=== PATIENT | female | born 1945 | race Caucasian/White ===

== ENCOUNTER → 2017-02-08 | Outpatient (CLI) | payer OTHER, MEDICAID ==
[~2017-02-08] MED LIST: ALEN70TA5 PO; CIPR-184 PO; CITALOPRAM PO; CLON1TAB PO; EXEM25TA2 PO; FLUT10SP NAS; FLUT1DIS5 INH; GABA300T3 PO; LISI1TAB5 PO; MECL-76 PO; MECL25TA4 PO; MILN100T PO; MORP15TA PO; NORCO PO; SUMA100T3 PO; TOPI25TA8 PO; TRAZ100T15 PO; VERA180C2 PO
== END | disposition home or self-care (01) ==
LOC: CFH 10:00
PROVIDERS: ATTEND Internal Medicine Hematology & Oncology
DX: Z13.820 Encounter for screening for osteoporosis (principal); M81.0 Age-related osteoporosis without current pathological fracture; C50.212 Malignant neoplasm of upper-inner quadrant of left female breast
CPT/HCPCS: 77080

== ENCOUNTER → 2017-07-20 | Outpatient (CLI) | payer OTHER, MEDICAID | LOC: CFH 08:40 | PROVIDERS: ATTEND Internal Medicine Cardiovascular Disease | DX: I48.0 Paroxysmal atrial fibrillation (principal); I08.1 Rheumatic disorders of both mitral and tricuspid valves; I10 Essential (primary) hypertension | CPT/HCPCS: 93306 ==

== ENCOUNTER → 2017-08-08 | Outpatient (CLI) | payer OTHER, MEDICAID | END | disposition home or self-care (01) | LOC: CFH 10:47 | PROVIDERS: ATTEND Internal Medicine Cardiovascular Disease | DX: R06.02 Shortness of breath (principal) | CPT/HCPCS: 71046 ==

== ENCOUNTER 2017-08-26 15:03 | Observation (INO) | payer OTHER, MEDICAID ==
[~2017-08-26] VITALS: Ht 170.2 cm; Wt 82.6 kg
[2017-08-26] MEDS ORDERED: APIX5TAB PO (15:59)
[2017-08-26] MEDS ORDERED: BUSP10TA PO (16:00)
[2017-08-26] MEDS ORDERED: LISI40TA PO (16:01)
[2017-08-26 16:02] LABS: BASOPHILS # (AUTO) 0.04 x10^3/uL (0-0.1); BASOPHILS % (AUTO) 1 % (0-1); EOSINOPHILS # (AUTO) 0.04 x10^3/uL (0-0.4); EOSINOPHILS % (AUTO) 1 % (1-7); LYMPHOCYTES # (AUTO) 1.29 x10^3/uL (1-3.4); LYMPHOCYTES % (AUTO) 27 % (22-44); MD NO; MEAN CORPUSCULAR HEMOGLOBIN 29.1 pg (27.0-34.8); MEAN CORPUSCULAR HGB CONC 32.9 g/dL (32.4-35.8); MEAN CORPUSCULAR VOLUME 88.5 fL (80-100); MEAN PLATELET VOLUME 8.6 fL (7.4-10.4); MONOCYTES # (AUTO) 0.41 x10^3/uL (0.2-0.8); MONOCYTES % (AUTO) 9 % (2-9); NEUTROPHILS # (AUTO) 2.94 x10^3/uL (1.8-6.8); NEUTROPHILS % (AUTO) 62 % (42-75); PLATELET COUNT 213 x10^3/uL (130-400); RED CELL DISTRIBUTION WIDTH 14.3 % (9.6-15.2)
[2017-08-26] MEDS ORDERED: HYDR-3307 PO (16:03)
[2017-08-26] MEDS ORDERED: BUTA-177 PO (16:05)
[2017-08-26] MEDS ORDERED: FLUT15.812 NAS (16:08)
[2017-08-26] MEDS ORDERED: TIZA4TAB PO (16:09)
[2017-08-26] MEDS ORDERED: ALBU18HF INH (16:10)
[2017-08-26 16:13] LABS: ALBUMIN 3.2 g/dL (3.4-5.0); ANION GAP 8 mmol/L (5-15); CALCIUM 8.1 mg/dL (8.5-10.1); CHLORIDE 116 mmol/L (98-107); CREATININE 1.56 mg/dL (0.55-1.02)
[2017-08-26 16:17] LABS: TROPONIN I < 0.015 ng/mL (0.000-0.045)
[2017-08-26] MEDS ORDERED: ASPIRIN 81 MG TABLET EC ONE (16:41)
[2017-08-26] MEDS ORDERED: ASPIRIN 325 MG TABLET ONE (16:43)
[2017-08-26] MEDS ORDERED: ASPIRIN 325 MG TABLET PO ONE (17:00)
[2017-08-26] MEDS ORDERED: BUTALB/APAP/CAFFEINE 50MG/325MG/40MG PO PRN (17:00)
[2017-08-26] MEDS ORDERED: TIZANIDINE 4MG TABLET PO PRN (17:00)
[2017-08-26] MEDS ORDERED: LABETALOL 5MG/ML, 20ML IVPush PRN (17:30)
[2017-08-26] MEDS ORDERED: DOCUSATE 100 MG CAPSULE PO PRN (17:30)
[2017-08-26] MEDS ORDERED: NITROGLYCERIN 0.4 MG BOTTLE (25 TABS) SL PRN (17:30)
[2017-08-26] MEDS ORDERED: ONDANSETRON 2MG/ML, 2ML IVPush PRN (17:30)
[2017-08-26] MEDS ORDERED: BISACODYL 10 MG SUPP PR PRN (17:30)
[2017-08-26] MEDS ORDERED: ACETAMINOPHEN 325 MG TABLET PO PRN (17:30)
[2017-08-26] MEDS ORDERED: POLYETHYLENE GLYCOL 17 GM PACKET PO PRN (17:30)
[2017-08-26] MEDS ORDERED: morphine SULFATE 10 MG/ML, 1ML IVPush PRN (17:30)
[2017-08-26 17:32] VITALS: BP 153/89
[2017-08-26] MEDS ORDERED: ALBUTEROL SULFATE 2.5 MG/3 ML NPPB PRN (18:00)
[2017-08-26] MEDS: D5%-0.45NACL+KCL 20MEQ 1,000 ML IV SCH (18:17)
[2017-08-26 20:00] VITALS: BP 112/67
[2017-08-26] MEDS: BUSPIRONE 5 MG TABLET PO SCH (20:00)
[2017-08-26] MEDS: APIXABAN 5 MG TABLET PO SCH (20:00)
[2017-08-26 20:36] LABS: TROPONIN I < 0.015 ng/mL (0.000-0.045)
[2017-08-26] MEDS ORDERED: TRAZODONE 100MG TABLET PO PRN (21:00)
[2017-08-27 00:40] VITALS: BP 137/88
[2017-08-27 02:24] LABS: ANION GAP 7 mmol/L (5-15); CALCIUM 8.2 mg/dL (8.5-10.1); CHLORIDE 117 mmol/L (98-107); CHOLESTEROL, TOTAL 138 mg/dL (140-239); CREATININE 1.35 mg/dL (0.55-1.02)
[2017-08-27 02:27] LABS: CHOL/HDL RATIO 2.2; HDL CHOL % 45 % (28-40); HDL CHOLESTEROL (DIRECT) 62 mg/dL (40-60); LDL CHOLESTEROL,CALCULATED 65 mg/dL (54-169); TRIGLYCERIDES 55 mg/dL (50-200); TROPONIN I < 0.015 ng/mL (0.000-0.045); VLDL CHOLESTEROL 11 mg/dL (0-25)
[2017-08-27] MEDS: D5%-0.45NACL+KCL 20MEQ 1,000 ML IV SCH (03:42)
[2017-08-27 07:50] VITALS: BP 135/83
[2017-08-27] MEDS ORDERED: REGADENOSON 0.4 MG/5 ML SYRINGE ONE (08:19)
[2017-08-27] MEDS ORDERED: TOPIRAMATE 25 MG TABLET PO SCH (09:00)
[2017-08-27] MEDS ORDERED: FLUTICASONE NASAL SPRAY 16GM NAS SCH (09:00)
[2017-08-27] MEDS ORDERED: LISINOPRIL 20 MG TABLET PO SCH (09:00)
[2017-08-27] MEDS: APIXABAN 5 MG TABLET PO SCH (12:04)
[2017-08-27] MEDS: BUSPIRONE 5 MG TABLET PO SCH (12:04)
[2017-08-27 14:00] VITALS: BP 170/93
== END 2017-08-27 17:11 | disposition home or self-care (01) ==
LOC: ED 16:00 → 5SO 17:02
PROVIDERS: ADMIT Hospitalist; ATTEND Hospitalist
DX: R07.89 Other chest pain (principal); N17.0 Acute kidney failure with tubular necrosis; I11.9 Hypertensive heart disease without heart failure; E11.40 Type 2 diabetes mellitus with diabetic neuropathy, unspecified; I48.91 Unspecified atrial fibrillation; M79.7 Fibromyalgia; E44.1 Mild protein-calorie malnutrition; G89.29 Other chronic pain; M54.9 Dorsalgia, unspecified; G43.909 Migraine, unspecified, not intractable, without status migrainosus; M81.0 Age-related osteoporosis without current pathological fracture; D68.69 Other thrombophilia; G47.00 Insomnia, unspecified; F32.9 Major depressive disorder, single episode, unspecified; J45.909 Unspecified asthma, uncomplicated; Z82.5 Family history of asthma and other chronic lower respiratory diseases; Z98.84 Bariatric surgery status; Z90.11 Acquired absence of right breast and nipple
CPT/HCPCS: 36415; 71045; 78452; 80048; 80061; 82040; 84484; 85025; 85379; 93005; 93017; 96360; 96361; 99285; A9502; C9898; G0378; J2785; J3480

== ENCOUNTER 2017-09-15 05:53 | Day surgery (SDC) | payer OTHER, MEDICAID ==
[2017-09-14 12:06] LABS: BASOPHILS # (AUTO) 0.03 x10^3/uL (0-0.1); BASOPHILS % (AUTO) 1 % (0-1); EOSINOPHILS # (AUTO) 0.03 x10^3/uL (0-0.4); EOSINOPHILS % (AUTO) 1 % (1-7); LYMPHOCYTES # (AUTO) 1.59 x10^3/uL (1-3.4); LYMPHOCYTES % (AUTO) 26 % (22-44); MD NO; MEAN CORPUSCULAR HEMOGLOBIN 29.2 pg (27.0-34.8); MEAN CORPUSCULAR HGB CONC 33.1 g/dL (32.4-35.8); MEAN CORPUSCULAR VOLUME 88.2 fL (80-100); MEAN PLATELET VOLUME 8.4 fL (7.4-10.4); MONOCYTES # (AUTO) 0.54 x10^3/uL (0.2-0.8); MONOCYTES % (AUTO) 9 % (2-9); NEUTROPHILS % (AUTO) 65 % (42-75); PLATELET COUNT 249 x10^3/uL (130-400); RED BLOOD COUNT 4.63 x10^6/uL (3.82-5.3); RED CELL DISTRIBUTION WIDTH 14.5 % (9.6-15.2)
[2017-09-14 12:14] LABS: INTERNATIONAL NORMALIZED RATIO 0.94 (0.93-1.1); PROTHROMBIN TIME 9.7 Seconds (9.6-11.5)
[2017-09-14 12:17] LABS: ALANINE AMINOTRANSFERASE 18 U/L (12-78); ALBUMIN 3.7 g/dL (3.4-5.0); ANION GAP 10 mmol/L (5-15); CALCIUM 8.7 mg/dL (8.5-10.1); CHLORIDE 108 mmol/L (98-107); CREATININE 1.28 mg/dL (0.55-1.02)
[2017-09-14 12:19] LABS: ALKALINE PHOSPHATASE 148 U/L (45-117); BILIRUBIN,TOTAL 0.6 mg/dL (0.2-1.0); TOTAL PROTEIN 7.5 g/dL (6.4-8.2)
[2017-09-14 12:36] VITALS: BP 127/81
[~2017-09-15] VITALS: Ht 170.2 cm; Wt 81.8 kg
[~2017-09-15 05:53] MED LIST changes: +ALBU18HF INH; +APIX5TAB PO; +BUSP10TA PO; +BUTA-177 PO; +CALC-55 PO; +CYAN10005 PO; +FLUT15.812 NAS; +HYDR-3307 PO; +LISI40TA PO; +PREG75CA PO; +TIZA4TAB PO; +TOPI15CA4 PO
[2017-09-15] MEDS ORDERED: FENTANYL PF 250 MCG/5ML ONE (07:54)
== END 2017-09-15 09:15 | disposition home or self-care (01) ==
LOC: CACL 05:53
PROVIDERS: ATTEND Internal Medicine Cardiovascular Disease
DX: I48.91 Unspecified atrial fibrillation (principal); I10 Essential (primary) hypertension; J45.909 Unspecified asthma, uncomplicated; Z88.1 Allergy status to other antibiotic agents; Z88.5 Allergy status to narcotic agent; Z88.8 Allergy status to other drugs, medicaments and biological substances
CPT/HCPCS: 36415; 71046; 80053; 85025; 85610; 85730; 92960; J3010

== ENCOUNTER 2018-10-01 11:34 | Day surgery (SDC) | payer MEDICARE, MEDICAID ==
[~2018-10-01] VITALS: Ht 170.2 cm; Wt 95.5 kg
[~2018-10-01 11:34] MED LIST changes: -ALEN70TA5 PO; +ALEN70TA6 PO; +TRAZ-137 PO; -TRAZ100T15 PO
[2018-10-01 13:14] VITALS: BP 147/81
[2018-10-01] MEDS ORDERED: SODIUM CHLORIDE 0.9% 1,000 ML IV SCH (13:30)
[2018-10-01] MEDS ORDERED: PLEASE ENTER HEIGHT AND WEIGHT MC SCH (13:30)
[2018-10-01 13:52] LABS: ALANINE AMINOTRANSFERASE 13 U/L (12-78); ALBUMIN 3.6 g/dL (3.4-5.0); ANION GAP 10 mmol/L (5-15); CALCIUM 8.8 mg/dL (8.5-10.1); CHLORIDE 114 mmol/L (98-107); CREATININE 1.19 mg/dL (0.55-1.02)
[2018-10-01 13:54] LABS: ALKALINE PHOSPHATASE 192 U/L (45-117); BILIRUBIN,TOTAL 0.6 mg/dL (0.2-1.0)
[2018-10-01] MEDS ORDERED: PROPOFOL 10 MG/ML, 20ML ONE (14:30)
== END 2018-10-01 16:26 | disposition home or self-care (01) ==
LOC: CACL 11:34
PROVIDERS: ATTEND Internal Medicine Cardiovascular Disease
DX: I48.0 Paroxysmal atrial fibrillation (principal); I34.0 Nonrheumatic mitral (valve) insufficiency; I10 Essential (primary) hypertension; Z88.1 Allergy status to other antibiotic agents; Z88.5 Allergy status to narcotic agent; Z88.8 Allergy status to other drugs, medicaments and biological substances
CPT/HCPCS: 36415; 80053; 92960; 93005; 93306; 93312; 93321; 93325; J2704

== ENCOUNTER 2018-10-04 12:31 | Inpatient (IN) | payer MEDICARE, MEDICAID ==
[~2018-10-04] VITALS: Ht 170.2 cm; Wt 91.0 kg
--- NOTE | 2018-10-04 13:06 | NUR ---
PT TO ED WITH DIZZINESS, SOB FOR 3 DAYS, "I'M BACK IN A FIB", TOLD BY DR.RICHARD RO'S OFFICE TO WAIT AND SEE IF FEELS BETTER, TO ED AFTER 3 DAYS NO RELIEF. [facility] 3D AGO AT . PT PLACED ON MONITOR, EKG DONE. SON AT BEDSIDE.
[2018-10-04 13:43] LABS: BASOPHILS # (AUTO) 0.03 x10^3/uL (0-0.1); BASOPHILS % (AUTO) 1 % (0-1); EOSINOPHILS # (AUTO) 0.03 x10^3/uL (0-0.4); EOSINOPHILS % (AUTO) 1 % (1-7); LYMPHOCYTES # (AUTO) 1.22 x10^3/uL (1-3.4); LYMPHOCYTES % (AUTO) 21 % (22-44); MD NO; MEAN CORPUSCULAR HEMOGLOBIN 25.6 pg (27.0-34.8); MEAN CORPUSCULAR HGB CONC 32.2 g/dL (32.4-35.8); MEAN CORPUSCULAR VOLUME 79.6 fL (80-100); MEAN PLATELET VOLUME 8.7 fL (7.4-10.4); MONOCYTES # (AUTO) 0.45 x10^3/uL (0.2-0.8); MONOCYTES % (AUTO) 8 % (2-9); NEUTROPHILS # (AUTO) 4.13 x10^3/uL (1.8-6.8); NEUTROPHILS % (AUTO) 71 % (42-75); PLATELET COUNT 249 x10^3/uL (130-400); RED BLOOD COUNT 4.48 x10^6/uL (3.82-5.3); RED CELL DISTRIBUTION WIDTH 17.4 % (9.6-15.2)
[2018-10-04 13:51] LABS: INTERNATIONAL NORMALIZED RATIO 1.02 (0.93-1.1); PROTHROMBIN TIME 10.7 Seconds (9.6-11.5)
[2018-10-04 13:53] LABS: ALBUMIN 3.4 g/dL (3.4-5.0); ANION GAP 5 mmol/L (5-15); CALCIUM 8.7 mg/dL (8.5-10.1); CHLORIDE 116 mmol/L (98-107); CREATININE 1.19 mg/dL (0.55-1.02)
[2018-10-04 13:58] LABS: FREE T4 (FREE THYROXINE) 1.01 ng/dL (0.76-1.46); TROPONIN I < 0.015 ng/mL (0.000-0.045)
--- NOTE | 2018-10-04 14:04 | NUR ---
PT RESTING IN [place] WITH SON AT BEDSIDE, PT ON MONITOR, VSS. AWAITING LAB RESULTS
--- NOTE | 2018-10-04 14:42 | NUR ---
PT AMBULATED ON MONITOR, AFTER APPROX 30 SEC PT'S HR INTO 140-150'S, PT C/O OF SOB AND NEED TO SIT DOWN BUT O2 SAT% REMAINED IN 97-99% ON ROOM AIR. BP 168/87. NOTIFIED
--- NOTE | 2018-10-04 14:56 | NUR ---
MD AT BEDSIDE, PT TB ADMITTED
[2018-10-04] MEDS ORDERED: SODIUM CHLORIDE FLUSH 10ML SYR IVF PRN (15:30)
--- NOTE | 2018-10-04 16:05 | NUR ---
OK FOR FOOD PER , PT RESTING IN [facility], FAMILY PROVIDED SOME FOOD. AWAITING BED ASSIGNMENT
--- NOTE | 2018-10-04 16:30 | NUR ---
CARDIOLOGY AT BEDSIDE
--- NOTE | 2018-10-04 16:56 | NUR ---
REPORT TO KAROLINA MARTINEZ
[2018-10-04] MEDS ORDERED: LIDODERM 5% PATCH TD PRN (17:30)
[2018-10-04] MEDS ORDERED: ONDANSETRON 2MG/ML, 2ML IVPush PRN (17:30)
[2018-10-04] MEDS ORDERED: ONDANSETRON ODT 4 MG PO PRN (17:30)
[2018-10-04] MEDS ORDERED: ACETAMINOPHEN 325 MG TABLET PO PRN (17:30)
[2018-10-04] MEDS ORDERED: hydrALAzine 20 MG/ML, 1ML IVPush PRN (17:30)
[2018-10-04] MEDS ORDERED: DOCUSATE 100 MG CAPSULE PO PRN (17:30)
[2018-10-04] MEDS ORDERED: ALBUTEROL SULFATE 2.5 MG/3 ML NPPB PRN (18:00)
[2018-10-04] MEDS ORDERED: MECLIZINE HCL 25 MG TABLET PO PRN (18:00)
[2018-10-04] MEDS ORDERED: TIZANIDINE 4MG TABLET PO PRN (18:00)
[2018-10-04 18:18] VITALS: BP 149/94
[2018-10-04] MEDS: HYDROcodone/APAP 10/325 MG TABLET PO PRN (18:20)
[2018-10-04] MEDS: SOTALOL 80MG TABLET PO SCH (18:20)
[2018-10-04 18:49] VITALS: BP 146/94
[2018-10-04] MEDS: PREGABALIN 75 MG CAPSULE PO SCH (20:01)
[2018-10-04] MEDS: BUSPIRONE 10 MG TABLET PO SCH (20:01)
[2018-10-04] MEDS: APIXABAN 5 MG TABLET PO SCH (20:01)
[2018-10-05 00:27] VITALS: BP 141/84
[2018-10-05 05:17] LABS: ANION GAP 6 mmol/L (5-15); CALCIUM 8.8 mg/dL (8.5-10.1); CHLORIDE 116 mmol/L (98-107)
[2018-10-05 05:18] LABS: BASOPHILS # (AUTO) 0.03 x10^3/uL (0-0.1); BASOPHILS % (AUTO) 1 % (0-1); EOSINOPHILS # (AUTO) 0.08 x10^3/uL (0-0.4); EOSINOPHILS % (AUTO) 2 % (1-7); LYMPHOCYTES # (AUTO) 1.51 x10^3/uL (1-3.4); LYMPHOCYTES % (AUTO) 36 % (22-44); MD NO; MEAN CORPUSCULAR HEMOGLOBIN 25.8 pg (27.0-34.8); MEAN CORPUSCULAR HGB CONC 32.2 g/dL (32.4-35.8); MEAN CORPUSCULAR VOLUME 80.3 fL (80-100); MEAN PLATELET VOLUME 8.8 fL (7.4-10.4); MONOCYTES # (AUTO) 0.45 x10^3/uL (0.2-0.8); MONOCYTES % (AUTO) 11 % (2-9); NEUTROPHILS # (AUTO) 2.13 x10^3/uL (1.8-6.8); NEUTROPHILS % (AUTO) 51 % (42-75); PLATELET COUNT 228 x10^3/uL (130-400); RED BLOOD COUNT 4.23 x10^6/uL (3.82-5.3); RED CELL DISTRIBUTION WIDTH 17.7 % (9.6-15.2)
[2018-10-05 05:20] LABS: CREATININE 1.17 mg/dL (0.55-1.02)
[2018-10-05] MEDS: HYDROcodone/APAP 10/325 MG TABLET PO PRN ×2 (05:50→21:26)
[2018-10-05] MEDS: SOTALOL 80MG TABLET PO SCH ×2 (05:50→18:29)
[2018-10-05 08:10] VITALS: BP 131/85
[2018-10-05] MEDS: EXEMESTANE 25 MG PO SCH ×2 (08:26→09:00)
[2018-10-05] MEDS: APIXABAN 5 MG TABLET PO SCH ×2 (08:27→21:26)
[2018-10-05] MEDS: BUSPIRONE 10 MG TABLET PO SCH ×2 (08:28→21:26)
[2018-10-05] MEDS: LISINOPRIL 40 MG TABLET PO SCH (08:28)
[2018-10-05] MEDS: FLUTICASONE NASAL SPRAY 16GM NAS SCH (08:28)
[2018-10-05] MEDS: CALCIUM/VITAMIN D3 250-125 TABLET PO SCH (08:28)
[2018-10-05] MEDS ORDERED: FLUTICASONE NASAL SPRAY 16GM NAS SCH (09:00)
[2018-10-05] MEDS ORDERED: PREGABALIN 75 MG CAPSULE PO SCH (09:00)
[2018-10-05 11:17] LABS: MICROSCOPIC AUTO
[2018-10-05 11:21] LABS: CULTURE INDICATED? NO
[2018-10-05 14:38] VITALS: BP 127/80
[2018-10-05 20:46] VITALS: BP 143/85
[2018-10-05] MEDS: PREGABALIN 75 MG CAPSULE PO SCH (21:26)
[2018-10-06 01:37] VITALS: BP 116/78
[2018-10-06] MEDS: SOTALOL 80MG TABLET PO SCH ×2 (05:39→18:26)
[2018-10-06 07:44] VITALS: BP 128/86
[2018-10-06] MEDS: FLUTICASONE NASAL SPRAY 16GM NAS SCH (09:00)
[2018-10-06] MEDS: BUSPIRONE 10 MG TABLET PO SCH ×2 (09:00→20:48)
[2018-10-06] MEDS: EXEMESTANE 25 MG PO SCH (09:00)
[2018-10-06] MEDS ORDERED: DEXTROSE 5% 500 ML IV PRN (09:28)
[2018-10-06] MEDS ORDERED: FENTANYL PF 100 MCG/2ML IV ONE (09:30)
[2018-10-06] MEDS ORDERED: MIDAZOLAM 1 MG/ML, 2ML IV ONE (09:30)
[2018-10-06] MEDS ORDERED: BUSPIRONE 5 MG TABLET ONE (10:53)
[2018-10-06] MEDS: APIXABAN 5 MG TABLET PO SCH ×2 (11:07→20:46)
[2018-10-06] MEDS: LISINOPRIL 40 MG TABLET PO SCH (11:07)
[2018-10-06] MEDS: CALCIUM/VITAMIN D3 250-125 TABLET PO SCH (11:08)
[2018-10-06] MEDS: HYDROcodone/APAP 10/325 MG TABLET PO PRN (11:11)
[2018-10-06] MEDS ORDERED: PROPOFOL 10 MG/ML, 20ML ONE (12:23)
[2018-10-06 13:19] VITALS: BP 105/62
[2018-10-06 19:08] VITALS: BP_SYST 126; BP_SYST 138; BP_DIAS 72; BP_DIAS 74
[2018-10-06] MEDS: PREGABALIN 75 MG CAPSULE PO SCH (20:46)
[2018-10-06] MEDS ORDERED: DIPHENHYDRAMINE 25 MG CAPSULE PO PRN (21:00)
[2018-10-07 01:09] VITALS: BP 117/77
[2018-10-07 04:13] VITALS: BP 148/85
[2018-10-07 04:16] VITALS: BP 139/63
[2018-10-07 04:18] VITALS: BP 134/81
[2018-10-07 07:55] VITALS: BP 129/83
[2018-10-07] MEDS: CALCIUM/VITAMIN D3 250-125 TABLET PO SCH (08:54)
[2018-10-07] MEDS: LISINOPRIL 40 MG TABLET PO SCH (08:54)
[2018-10-07] MEDS: BUSPIRONE 10 MG TABLET PO SCH (08:54)
[2018-10-07] MEDS: SOTALOL 80MG TABLET PO SCH (08:54)
[2018-10-07] MEDS: APIXABAN 5 MG TABLET PO SCH (08:54)
[2018-10-07] MEDS: EXEMESTANE 25 MG PO SCH (08:57)
[2018-10-07] MEDS: FLUTICASONE NASAL SPRAY 16GM NAS SCH (08:57)
[2018-10-07] MEDS ORDERED: SOTA80TA18 PO (09:36)
== END 2018-10-07 12:59 | disposition home health service (06) | DRG 308 ==
LOC: ED 14:22 → EDIP 15:21 → 5SO 17:08
PROVIDERS: ADMIT Internal Medicine; ATTEND Internal Medicine
PROC: 5A2204Z Restoration of Cardiac Rhythm, Single (ICD-10-PCS; principal; 2018-10-06 12:20)
DX: I48.0 Paroxysmal atrial fibrillation (principal); I50.41 Acute combined systolic (congestive) and diastolic (congestive) heart failure; D68.59 Other primary thrombophilia; I13.0 Hypertensive heart and chronic kidney disease with heart failure and stage 1 through stage 4 chronic kidney disease, or unspecified chronic kidney disease; D35.2 Benign neoplasm of pituitary gland; E11.22 Type 2 diabetes mellitus with diabetic chronic kidney disease; F32.9 Major depressive disorder, single episode, unspecified; G43.909 Migraine, unspecified, not intractable, without status migrainosus; G47.00 Insomnia, unspecified; G89.29 Other chronic pain; I34.0 Nonrheumatic mitral (valve) insufficiency; I48.1 Persistent atrial fibrillation; M19.90 Unspecified osteoarthritis, unspecified site; J45.909 Unspecified asthma, uncomplicated; M79.7 Fibromyalgia; M81.0 Age-related osteoporosis without current pathological fracture; N18.3 Chronic kidney disease, stage 3 (moderate); Z79.01 Long term (current) use of anticoagulants; Z82.49 Family history of ischemic heart disease and other diseases of the circulatory system; Z85.3 Personal history of malignant neoplasm of breast; Z87.891 Personal history of nicotine dependence; Z90.11 Acquired absence of right breast and nipple; Z98.84 Bariatric surgery status; Z87.01 Personal history of pneumonia (recurrent); Z90.49 Acquired absence of other specified parts of digestive tract; Z98.1 Arthrodesis status
CPT/HCPCS: 36415; 71045; 80048; 81001; 82040; 83880; 84439; 84443; 84484; 85025; 85610; 85730; 93005; 99285; G0378; J2704; Q0163

== ENCOUNTER → 2018-10-18 | Outpatient (CLI) | payer MEDICARE, MEDICAID ==
[~2018-10-18] MED LIST changes: +FENTANYL PF 100 MCG/2ML ONE; +FLUMAZENIL 0.1 MG/1 ML, 5ML ONE; +GADOBUTROL 10 MMOL/10 ML PFS ONE; +MIDAZOLAM 1 MG/ML, 5ML ONE; +NALOXONE 1 MG/ML, 2ML ONE; +SOTA80TA18 PO
== END | disposition home or self-care (01) ==
LOC: RAD 09:06
PROVIDERS: ATTEND Family Medicine
DX: G31.89 Other specified degenerative diseases of nervous system (principal); I67.82 Cerebral ischemia
CPT/HCPCS: 70553; 99156; 99157; A9585; J2250; J3010; J2310

== ENCOUNTER 2018-11-26 16:05 | Inpatient (IN) | payer MEDICARE, MEDICAID ==
[~2018-11-26] VITALS: Ht 170.2 cm; Wt 92.0 kg
[~2018-11-26 16:05] MED LIST changes: -FENTANYL PF 100 MCG/2ML ONE; -FLUMAZENIL 0.1 MG/1 ML, 5ML ONE; -GADOBUTROL 10 MMOL/10 ML PFS ONE; -MIDAZOLAM 1 MG/ML, 5ML ONE; -NALOXONE 1 MG/ML, 2ML ONE
--- NOTE | 2018-11-26 16:18 | NUR ---
Pt BIB EMS from home where pt lives with son for weakness, nausea, worse SOB on exertion x 1 week. Pt denies vomiting. Denies CP but does states some pressure. Afib on monitor. Lungs diminished in bases. mild pitting edema BLES.
[2018-11-26 16:50] LABS: PROTHROMBIN TIME 10.5 Seconds (9.6-11.5)
[2018-11-26 16:52] LABS: ALBUMIN 3.3 g/dL (3.4-5.0); ANION GAP 9 mmol/L (5-15); CALCIUM 8.2 mg/dL (8.5-10.1); CHLORIDE 111 mmol/L (98-107); CREATININE 1.46 mg/dL (0.55-1.02)
[2018-11-26 16:55] LABS: TROPONIN I < 0.015 ng/mL (0.000-0.045)
[2018-11-26 17:01] LABS: BASOPHILS # (AUTO) 0.03 x10^3/uL (0-0.1); BASOPHILS % (AUTO) 1 % (0-1); EOSINOPHILS # (AUTO) 0.06 x10^3/uL (0-0.4); EOSINOPHILS % (AUTO) 1 % (1-7); LYMPHOCYTES # (AUTO) 1.58 x10^3/uL (1-3.4); LYMPHOCYTES % (AUTO) 30 % (22-44); MD NO; MEAN CORPUSCULAR HEMOGLOBIN 26.7 pg (27.0-34.8); MEAN CORPUSCULAR VOLUME 83.3 fL (80-100); MEAN PLATELET VOLUME 9.1 fL (7.4-10.4); MONOCYTES % (AUTO) 11 % (2-9); NEUTROPHILS # (AUTO) 3.09 x10^3/uL (1.8-6.8); NEUTROPHILS % (AUTO) 58 % (42-75); PLATELET COUNT 262 x10^3/uL (130-400); RED BLOOD COUNT 4.59 x10^6/uL (3.82-5.3)
[2018-11-26] MEDS ORDERED: TOPI50TA8 PO (17:39)
[2018-11-26] MEDS ORDERED: HYDROCHLOROTH12.5 MG PO (17:39)
[2018-11-26] MEDS ORDERED: ACETAMINOPHEN 325 MG TABLET ONE (18:14)
[2018-11-26] MEDS ORDERED: ACETAMINOPHEN 325 MG TABLET PO ONE (18:30)
--- NOTE | 2018-11-26 19:29 | NUR ---
BREAK RN- PATIENT RESTING WITH NO COMPLAINTS. VS UPDATED AND WNL. AWAITING HOSPITAL ROOM. SIDE RAILS UP X2 FOR SAFETY. CALL BUTTON IN LAP.
[2018-11-26 20:20] VITALS: BP 122/86
[2018-11-26] MEDS ORDERED: ACETAMINOPHEN 325 MG TABLET PO PRN (20:30)
[2018-11-26] MEDS ORDERED: NITROGLYCERIN 0.4 MG BOTTLE (25 TABS) SL PRN (20:30)
[2018-11-26] MEDS ORDERED: ONDANSETRON ODT 4 MG PO PRN (20:30)
[2018-11-26] MEDS ORDERED: DOCUSATE 100 MG CAPSULE PO PRN (20:30)
[2018-11-26] MEDS ORDERED: LIDODERM 5% PATCH TD PRN (20:30)
[2018-11-26] MEDS ORDERED: TEMAZEPAM 15 MG CAPSULE PO PRN (20:30)
[2018-11-26] MEDS ORDERED: HEPARIN 5,000 UNITS/ML, 1ML SQ SCH (20:30)
[2018-11-26] MEDS ORDERED: ENALAPRILAT 1.25 MG/ML, 2ML IVPush PRN (20:30)
[2018-11-26] MEDS ORDERED: MECLIZINE 25 MG TABLET PO PRN (22:00)
[2018-11-26] MEDS ORDERED: PHARMACY MAY ADJ FOR RENAL FX MC PRN (22:30)
[2018-11-26] MEDS ORDERED: SOTALOL 80MG TABLET PO ONE (22:30)
[2018-11-26] MEDS ORDERED: TOPIRAMATE 100 MG TABLET ONE (22:35)
[2018-11-26] MEDS: BUSPIRONE 5 MG TABLET PO SCH (22:44)
[2018-11-26] MEDS: APIXABAN 5 MG TABLET PO SCH (22:44)
[2018-11-26] MEDS: TOPIRAMATE 25 MG TABLET PO SCH (22:45)
[2018-11-26] MEDS: TIZANIDINE 4MG TABLET PO PRN (22:48)
[2018-11-26 23:21] LABS: TROPONIN I < 0.015 ng/mL (0.000-0.045)
[2018-11-27] MEDS: HYDROcodone/APAP 10/325 MG TABLET PO PRN ×3 (01:40→17:35)
[2018-11-27 02:22] VITALS: BP 144/78
[2018-11-27 05:37] LABS: BASOPHILS # (AUTO) 0.03 x10^3/uL (0-0.1); BASOPHILS % (AUTO) 1 % (0-1); EOSINOPHILS # (AUTO) 0.04 x10^3/uL (0-0.4); EOSINOPHILS % (AUTO) 1 % (1-7); LYMPHOCYTES % (AUTO) 33 % (22-44); MD NO; MEAN CORPUSCULAR HEMOGLOBIN 26.7 pg (27.0-34.8); MEAN CORPUSCULAR HGB CONC 31.9 g/dL (32.4-35.8); MEAN CORPUSCULAR VOLUME 83.6 fL (80-100); MEAN PLATELET VOLUME 9.4 fL (7.4-10.4); MONOCYTES # (AUTO) 0.45 x10^3/uL (0.2-0.8); MONOCYTES % (AUTO) 9 % (2-9); NEUTROPHILS # (AUTO) 2.87 x10^3/uL (1.8-6.8); NEUTROPHILS % (AUTO) 56 % (42-75); PLATELET COUNT 219 x10^3/uL (130-400); RED BLOOD COUNT 4.46 x10^6/uL (3.82-5.3); RED CELL DISTRIBUTION WIDTH 19.3 % (9.6-15.2)
[2018-11-27 05:46] LABS: ANION GAP 6 mmol/L (5-15); CALCIUM 8.9 mg/dL (8.5-10.1); CHLORIDE 112 mmol/L (98-107)
[2018-11-27 05:53] LABS: CREATININE 1.31 mg/dL (0.55-1.02); TROPONIN I < 0.015 ng/mL (0.000-0.045)
[2018-11-27] MEDS ORDERED: SOTALOL 80MG TABLET PO SCH (06:00)
[2018-11-27] MEDS ORDERED: TOPIRAMATE 100 MG TABLET ONE (07:36)
[2018-11-27 07:38] VITALS: BP 102/57
[2018-11-27] MEDS: BUSPIRONE 5 MG TABLET PO SCH ×2 (07:42→20:18)
[2018-11-27] MEDS: APIXABAN 5 MG TABLET PO SCH ×2 (07:43→20:18)
[2018-11-27] MEDS: DULOXETINE 30 MG CAPSULE.DR PO SCH (07:43)
[2018-11-27] MEDS: TOPIRAMATE 25 MG TABLET PO SCH ×2 (07:43→20:18)
[2018-11-27] MEDS: EXEMESTANE 25 MG HOMEMEDPO SCH (07:48)
[2018-11-27] MEDS ORDERED: POTASSIUM CHLORIDE 20 MEQ TAB.ER.PRT PO ONE (08:00)
[2018-11-27] MEDS ORDERED: LISINOPRIL 40 MG TABLET PO SCH (09:00)
[2018-11-27] MEDS ORDERED: HYDROCHLOROTHIAZIDE 12.5 MG CAPSULE PO SCH (09:00)
[2018-11-27 10:28] VITALS: BP_SYST 100; BP_SYST 110; BP_SYST 112; BP_DIAS 68; BP_DIAS 70; BP_DIAS 73
[2018-11-27] MEDS: SODIUM CHLORIDE 0.9% 1,000 ML IV SCH ×2 (11:20→22:55)
[2018-11-27] MEDS: FLUTICASONE NASAL SPRAY 16GM NAS SCH (11:20)
[2018-11-27 13:15] VITALS: BP 109/73
[2018-11-27] MEDS: SOTALOL 80MG TABLET PO SCH (17:35)
[2018-11-27 18:55] VITALS: BP 108/69
[2018-11-27] MEDS: TIZANIDINE 4MG TABLET PO PRN (20:18)
[2018-11-27 20:26] VITALS: BP_SYST 107; BP_SYST 109; BP_SYST 110; BP_DIAS 71; BP_DIAS 76; BP_DIAS 78
[2018-11-28 03:20] VITALS: BP 125/75
[2018-11-28 06:01] LABS: BASOPHILS # (AUTO) 0.03 x10^3/uL (0-0.1); BASOPHILS % (AUTO) 1 % (0-1); EOSINOPHILS # (AUTO) 0.05 x10^3/uL (0-0.4); EOSINOPHILS % (AUTO) 1 % (1-7); LYMPHOCYTES # (AUTO) 1.64 x10^3/uL (1-3.4); LYMPHOCYTES % (AUTO) 33 % (22-44); MD NO; MEAN CORPUSCULAR HEMOGLOBIN 26.7 pg (27.0-34.8); MEAN CORPUSCULAR HGB CONC 31.8 g/dL (32.4-35.8); MEAN CORPUSCULAR VOLUME 83.9 fL (80-100); MEAN PLATELET VOLUME 9.2 fL (7.4-10.4); MONOCYTES # (AUTO) 0.44 x10^3/uL (0.2-0.8); MONOCYTES % (AUTO) 9 % (2-9); NEUTROPHILS % (AUTO) 57 % (42-75); PLATELET COUNT 229 x10^3/uL (130-400); RED BLOOD COUNT 4.63 x10^6/uL (3.82-5.3); RED CELL DISTRIBUTION WIDTH 19.2 % (9.6-15.2)
[2018-11-28 06:22] LABS: ANION GAP 5 mmol/L (5-15); CALCIUM 8.9 mg/dL (8.5-10.1); CHLORIDE 114 mmol/L (98-107)
[2018-11-28 06:51] LABS: CREATININE 1.19 mg/dL (0.55-1.02); THYROID STIMULATING HORMONE 0.623 mIU/L (0.358-3.740)
[2018-11-28] MEDS ORDERED: TOPIRAMATE 100 MG TABLET ONE (08:14)
[2018-11-28] MEDS: APIXABAN 5 MG TABLET PO SCH (08:18)
[2018-11-28] MEDS: TOPIRAMATE 25 MG TABLET PO SCH ×2 (08:19→21:42)
[2018-11-28] MEDS: DULOXETINE 30 MG CAPSULE.DR PO SCH (08:20)
[2018-11-28] MEDS: HYDROcodone/APAP 10/325 MG TABLET PO PRN ×2 (08:20→21:41)
[2018-11-28] MEDS: BUSPIRONE 5 MG TABLET PO SCH ×2 (08:20→21:42)
[2018-11-28] MEDS: EXEMESTANE 25 MG HOMEMEDPO SCH (08:22)
[2018-11-28] MEDS: SOTALOL 80MG TABLET PO SCH (08:23)
[2018-11-28] MEDS: FLUTICASONE NASAL SPRAY 16GM NAS SCH (09:00)
[2018-11-28 09:40] VITALS: BP 121/81
[2018-11-28 15:59] VITALS: BP 120/77
[2018-11-28 16:00] LABS: LDL/HDL RATIO 1.4 (0.5-3.0)
[2018-11-28 20:51] VITALS: BP 136/84
[2018-11-28] MEDS: ALBUTEROL SULFATE 2.5 MG/3 ML NPPB SCH (21:00)
[2018-11-29 03:42] VITALS: BP 127/83
[2018-11-29 05:39] LABS: BASOPHILS # (AUTO) 0.02 x10^3/uL (0-0.1); BASOPHILS % (AUTO) 0 % (0-1); EOSINOPHILS # (AUTO) 0.05 x10^3/uL (0-0.4); EOSINOPHILS % (AUTO) 1 % (1-7); LYMPHOCYTES # (AUTO) 1.57 x10^3/uL (1-3.4); LYMPHOCYTES % (AUTO) 30 % (22-44); MD NO; MEAN CORPUSCULAR HGB CONC 31.7 g/dL (32.4-35.8); MEAN CORPUSCULAR VOLUME 81.9 fL (80-100); MONOCYTES # (AUTO) 0.51 x10^3/uL (0.2-0.8); MONOCYTES % (AUTO) 10 % (2-9); NEUTROPHILS # (AUTO) 3.07 x10^3/uL (1.8-6.8); NEUTROPHILS % (AUTO) 59 % (42-75); PLATELET COUNT 209 x10^3/uL (130-400); RED BLOOD COUNT 4.75 x10^6/uL (3.82-5.3)
[2018-11-29 05:48] LABS: ANION GAP 8 mmol/L (5-15); CALCIUM 9.1 mg/dL (8.5-10.1); CHLORIDE 112 mmol/L (98-107); CREATININE 1.12 mg/dL (0.55-1.02)
[2018-11-29 08:20] VITALS: BP 134/88
[2018-11-29] MEDS ORDERED: TOPIRAMATE 100 MG TABLET ONE (08:25)
[2018-11-29] MEDS: FLUTICASONE NASAL SPRAY 16GM NAS SCH (08:27)
[2018-11-29] MEDS: BUSPIRONE 5 MG TABLET PO SCH ×2 (08:27→19:53)
[2018-11-29] MEDS: DULOXETINE 30 MG CAPSULE.DR PO SCH (08:27)
[2018-11-29] MEDS: EXEMESTANE 25 MG HOMEMEDPO SCH (08:27)
[2018-11-29] MEDS: HYDROcodone/APAP 10/325 MG TABLET PO PRN ×2 (08:27→21:26)
[2018-11-29] MEDS: TOPIRAMATE 25 MG TABLET PO SCH ×2 (08:28→19:53)
[2018-11-29] MEDS: ALBUTEROL SULFATE 2.5 MG/3 ML NPPB SCH ×2 (09:00→19:30)
[2018-11-29] MEDS ORDERED: SODIUM CHLORIDE 0.9% 1,000 ML IV SCH (11:00)
[2018-11-29] MEDS ORDERED: FILTER 0.22 MICRON IV PRN (11:30)
[2018-11-29] MEDS ORDERED: AMIODARONE 900 MG in DEXTROSE 5% 482 ML IV PRN (11:30)
[2018-11-29] MEDS ORDERED: AMIODARONE IN D5W 100 ML IV ONE (11:30)
[2018-11-29 12:35] VITALS: BP 151/90
[2018-11-29] MEDS ORDERED: FENTANYL PF 100 MCG/2ML ONE (13:58)
[2018-11-29] MEDS ORDERED: MIDAZOLAM 1 MG/ML, 5ML ONE (13:58)
[2018-11-29] MEDS ORDERED: HEPARIN 1,000 UNITS/ML, 10ML ONE (13:59)
[2018-11-29] MEDS ORDERED: BIVALIRUDIN 250 MG ONE (13:59)
[2018-11-29] MEDS ORDERED: LIDOCAINE 2%, 20ML ONE (13:59)
[2018-11-29] MEDS ORDERED: VERAPAMIL 2.5 MG/ML, 2ML ONE (13:59)
[2018-11-29] MEDS: SODIUM CHLORIDE 0.9% 1,000 ML IV SCH ×2 (15:36→22:57)
[2018-11-29] MEDS ORDERED: MORPHINE SULFATE 4 MG/ML, 1ML ONE (16:04)
[2018-11-29] MEDS ORDERED: MORPHINE SULFATE 4 MG/ML, 1ML IVPush PRN (16:30)
[2018-11-29] MEDS ORDERED: BUTALB/APAP/CAFFEINE 50MG/325MG/40MG PO PRN (17:00)
[2018-11-29 19:15] VITALS: BP 143/95
[2018-11-29] MEDS: APIXABAN 5 MG TABLET PO SCH (19:53)
[2018-11-30 00:39] VITALS: BP 138/83
[2018-11-30] MEDS: HYDROcodone/APAP 10/325 MG TABLET PO PRN ×2 (02:10→19:33)
[2018-11-30 05:08] LABS: ANION GAP 6 mmol/L (5-15); CALCIUM 8.6 mg/dL (8.5-10.1); CHLORIDE 112 mmol/L (98-107)
[2018-11-30 05:09] LABS: CREATININE 1.19 mg/dL (0.55-1.02)
[2018-11-30 07:14] VITALS: BP 137/90
[2018-11-30] MEDS: ALBUTEROL SULFATE 2.5 MG/3 ML NPPB SCH (08:10)
[2018-11-30] MEDS ORDERED: ALBUTEROL SULFATE 2.5 MG/3 ML NPPB PRN (08:30)
[2018-11-30] MEDS ORDERED: TOPIRAMATE 100 MG TABLET ONE (09:09)
[2018-11-30] MEDS: APIXABAN 5 MG TABLET PO SCH ×2 (09:12→20:29)
[2018-11-30] MEDS: DULOXETINE 30 MG CAPSULE.DR PO SCH (09:12)
[2018-11-30] MEDS: BUSPIRONE 5 MG TABLET PO SCH ×2 (09:12→20:30)
[2018-11-30] MEDS: EXEMESTANE 25 MG HOMEMEDPO SCH (09:12)
[2018-11-30] MEDS: FLUTICASONE NASAL SPRAY 16GM NAS SCH (09:12)
[2018-11-30] MEDS: TOPIRAMATE 25 MG TABLET PO SCH ×2 (09:13→20:30)
[2018-11-30] MEDS: AMIODARONE 200 MG TABLET PO SCH ×2 (10:18→20:32)
[2018-11-30 12:12] VITALS: BP 150/99
[2018-11-30] MEDS ORDERED: PROPOFOL 10 MG/ML, 20ML ONE (14:46)
[2018-11-30 19:30] VITALS: BP 135/84
[2018-11-30 20:27] VITALS: BP 143/86
[2018-12-01 00:58] VITALS: BP 136/68
[2018-12-01] MEDS: HYDROcodone/APAP 10/325 MG TABLET PO PRN ×2 (03:58→21:32)
[2018-12-01 07:28] VITALS: BP 142/84
[2018-12-01] MEDS: DULOXETINE 30 MG CAPSULE.DR PO SCH (09:22)
[2018-12-01] MEDS: BUSPIRONE 5 MG TABLET PO SCH ×2 (09:22→21:32)
[2018-12-01] MEDS: AMIODARONE 200 MG TABLET PO SCH ×2 (09:22→21:32)
[2018-12-01] MEDS: TOPIRAMATE 25 MG TABLET PO SCH ×2 (09:23→21:32)
[2018-12-01] MEDS: APIXABAN 5 MG TABLET PO SCH ×2 (09:23→21:32)
[2018-12-01] MEDS: FLUTICASONE NASAL SPRAY 16GM NAS SCH (09:23)
[2018-12-01] MEDS: EXEMESTANE 25 MG HOMEMEDPO SCH (09:28)
[2018-12-01] MEDS: METOPROLOL TARTRATE 25 MG TABLET PO SCH ×3 (11:54→23:23)
[2018-12-01 13:15] VITALS: BP 141/86
[2018-12-01 21:30] VITALS: BP 151/91
[2018-12-02 01:44] VITALS: BP 149/90
[2018-12-02 05:10] VITALS: BP 144/95
[2018-12-02] MEDS ORDERED: METOPROLOL TARTRATE 25 MG TABLET PO ONE ×2 (06:00)
[2018-12-02] MEDS: BUSPIRONE 5 MG TABLET PO SCH ×2 (09:13→20:10)
[2018-12-02] MEDS: APIXABAN 5 MG TABLET PO SCH ×2 (09:13→20:10)
[2018-12-02] MEDS: DULOXETINE 30 MG CAPSULE.DR PO SCH (09:13)
[2018-12-02] MEDS: AMIODARONE 200 MG TABLET PO SCH ×2 (09:14→20:10)
[2018-12-02] MEDS: FLUTICASONE NASAL SPRAY 16GM NAS SCH (09:15)
[2018-12-02] MEDS: EXEMESTANE 25 MG HOMEMEDPO SCH (09:21)
[2018-12-02] MEDS: TOPIRAMATE 25 MG TABLET PO SCH ×2 (09:21→20:13)
[2018-12-02] MEDS ORDERED: METO25TA35 PO (09:52)
[2018-12-02] MEDS ORDERED: APIX5TAB PO (09:52)
[2018-12-02] MEDS: HYDROcodone/APAP 10/325 MG TABLET PO PRN ×2 (11:57→21:42)
[2018-12-02 12:31] VITALS: BP 128/83
[2018-12-02] MEDS: METOPROLOL TARTRATE 25 MG TABLET PO SCH (17:19)
[2018-12-02 19:23] VITALS: BP 134/81
[2018-12-02 20:08] VITALS: BP 124/73
[2018-12-03 03:20] VITALS: BP 138/85
[2018-12-03] MEDS: METOPROLOL TARTRATE 25 MG TABLET PO SCH (05:13)
[2018-12-03 09:30] VITALS: BP 120/81
[2018-12-03] MEDS ORDERED: TOPIRAMATE 100 MG TABLET ONE (09:54)
[2018-12-03] MEDS: DULOXETINE 30 MG CAPSULE.DR PO SCH (10:05)
[2018-12-03] MEDS: FLUTICASONE NASAL SPRAY 16GM NAS SCH (10:05)
[2018-12-03] MEDS: BUSPIRONE 5 MG TABLET PO SCH (10:05)
[2018-12-03] MEDS: APIXABAN 5 MG TABLET PO SCH (10:06)
[2018-12-03] MEDS: TOPIRAMATE 25 MG TABLET PO SCH (10:06)
[2018-12-03] MEDS: HYDROcodone/APAP 10/325 MG TABLET PO PRN (10:08)
[2018-12-03] MEDS: EXEMESTANE 25 MG HOMEMEDPO SCH (11:02)
[2018-12-03 15:30] VITALS: BP 123/80
[2018-12-03] MEDS ORDERED: AMIODARONE 200 MG TABLET PO SCH (21:00)
== END 2018-12-03 15:30 | disposition home health service (06) | DRG 286 ==
LOC: ED 17:21 → INTOOBSV 18:55 → OBSVTOIN 18:55 → EDIP 18:55 → 5SO 20:13 → DCLOUNGE 12-03 15:18
PROVIDERS: ADMIT Family Medicine; ATTEND Family Medicine
PROC: 4A023N7 Measurement of Cardiac Sampling and Pressure, Left Heart, Percutaneous Approach (ICD-10-PCS; principal; 2018-11-29)
PROC: B2111ZZ Fluoroscopy of Multiple Coronary Arteries using Low Osmolar Contrast (ICD-10-PCS; 2018-11-29)
PROC: B2151ZZ Fluoroscopy of Left Heart using Low Osmolar Contrast (ICD-10-PCS; 2018-11-29)
DX: I48.91 Unspecified atrial fibrillation (principal); N17.0 Acute kidney failure with tubular necrosis; F33.9 Major depressive disorder, recurrent, unspecified; D68.69 Other thrombophilia; I13.0 Hypertensive heart and chronic kidney disease with heart failure and stage 1 through stage 4 chronic kidney disease, or unspecified chronic kidney disease; R07.89 Other chest pain; I48.92 Unspecified atrial flutter; I08.1 Rheumatic disorders of both mitral and tricuspid valves; J45.909 Unspecified asthma, uncomplicated; M54.9 Dorsalgia, unspecified; I95.9 Hypotension, unspecified; R00.1 Bradycardia, unspecified; E11.40 Type 2 diabetes mellitus with diabetic neuropathy, unspecified; E53.8 Deficiency of other specified B group vitamins; G89.29 Other chronic pain; M79.7 Fibromyalgia; J42 Unspecified chronic bronchitis; E11.22 Type 2 diabetes mellitus with diabetic chronic kidney disease; G43.909 Migraine, unspecified, not intractable, without status migrainosus; M81.0 Age-related osteoporosis without current pathological fracture; N18.3 Chronic kidney disease, stage 3 (moderate); I50.9 Heart failure, unspecified; Z66 Do not resuscitate; Z79.01 Long term (current) use of anticoagulants; Z79.811 Long term (current) use of aromatase inhibitors; Z88.6 Allergy status to analgesic agent; Z88.5 Allergy status to narcotic agent; Z88.8 Allergy status to other drugs, medicaments and biological substances; Z85.3 Personal history of malignant neoplasm of breast; Z87.891 Personal history of nicotine dependence; Z90.11 Acquired absence of right breast and nipple; Z98.84 Bariatric surgery status; Z90.49 Acquired absence of other specified parts of digestive tract; Z87.01 Personal history of pneumonia (recurrent)
CPT/HCPCS: 36415; 71045; 80048; 80061; 82040; 82607; 83880; 84443; 84484; 85025; 85379; 85610; 85730; 93005; 93308; 93312; 93321; 93325; 93458; 94640; 99156; C1769; C1894; G0378; J0583; J1644; J2250; J2704; J3010; J7613; J0282; J2270; J7030; J7060; Q9967

== ENCOUNTER 2019-02-08 12:43 | Observation (INO) | payer MEDICARE, MEDICAID ==
[~2019-02-08] VITALS: Ht 170.2 cm; Wt 87.2 kg
[~2019-02-08 12:43] MED LIST changes: +CYAN-27 PO; -CYAN10005 PO; -HYDR-3307 PO; +HYDR-36 PO; +HYDROCHLOROTH12.5 MG PO; +LISI1TAB19 PO; -LISI1TAB5 PO; +METO25TA35 PO; -TIZA4TAB PO; +TIZA4TAB2 PO; +TOPI50TA8 PO
--- NOTE | 2019-02-08 13:00 | NUR ---
PT ARRIVES TO ED VIA EMS FOR NAUSEA. PT REPORTS NAUSEA STARTED A FEW HOURS AGO. PT REPORTS NO CHEST PAIN OR ANY OTHER DISCOMFORT. PT APPEARS ANXIOUS AND LONLEY. PT ASKED ABOUT HOME SITUATION AND REPORTS SHE LIVES WITH HER SON AND HER NEEDS ARE MET. PT DENIES ANY ABUSE. PT REPORTS SHE WILL NEED HER AORTIC AND MITRAL VALVE REPLACED IN MARCH. PT CONNECTED TO MONITORS AND CALL LIGHT IN REACH. AWAITING FURTHER ORDERS. PT WAS GIVEN ODT ZOFRAN EN ROUTE AND NOW FEELS BETTER. 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
[2019-02-08 13:20] LABS: BASOPHILS # (AUTO) 0.03 x10^3/uL (0-0.1); BASOPHILS % (AUTO) 1 % (0-1); EOSINOPHILS # (AUTO) 0.02 x10^3/uL (0-0.4); EOSINOPHILS % (AUTO) 0 % (1-7); LYMPHOCYTES % (AUTO) 16 % (22-44); MD NO; MEAN CORPUSCULAR HEMOGLOBIN 27.9 pg (27.0-34.8); MEAN CORPUSCULAR VOLUME 87.1 fL (80-100); MEAN PLATELET VOLUME 8.4 fL (7.4-10.4); MONOCYTES # (AUTO) 0.54 x10^3/uL (0.2-0.8); MONOCYTES % (AUTO) 8 % (2-9); NEUTROPHILS # (AUTO) 4.84 x10^3/uL (1.8-6.8); NEUTROPHILS % (AUTO) 75 % (42-75); PLATELET COUNT 205 x10^3/uL (130-400); RED BLOOD COUNT 4.37 x10^6/uL (3.82-5.3); RED CELL DISTRIBUTION WIDTH 18.1 % (9.6-15.2)
[2019-02-08 13:31] LABS: ALANINE AMINOTRANSFERASE 22 U/L (12-78); ALBUMIN 3.3 g/dL (3.4-5.0); ANION GAP 8 mmol/L (5-15); CALCIUM 8.3 mg/dL (8.5-10.1); CHLORIDE 109 mmol/L (98-107); CREATININE 1.22 mg/dL (0.55-1.02)
[2019-02-08 13:35] LABS: ALKALINE PHOSPHATASE 132 U/L (45-117); BILIRUBIN,TOTAL 0.7 mg/dL (0.2-1.0); TOTAL PROTEIN 6.2 g/dL (6.4-8.2)
[2019-02-08 13:36] LABS: TROPONIN I < 0.015 ng/mL (0.000-0.045)
--- NOTE | 2019-02-08 15:01 | NUR ---
PT RESTING, WATCHING TV, NADN AT THIS TIME. VSS.
--- NOTE | 2019-02-08 15:21 | NUR ---
REPORT TO LEEANN MARTINEZ
[2019-02-08] MEDS ORDERED: SODIUM CHLORIDE 0.9% 1,000 ML IV SCH (16:36)
[2019-02-08] MEDS ORDERED: ALBUTEROL SULFATE 2.5 MG/3 ML HHN PRN (17:00)
[2019-02-08] MEDS ORDERED: MECLIZINE 25 MG TABLET PO PRN (17:00)
[2019-02-08] MEDS ORDERED: ACETAMINOPHEN 325 MG TABLET PO PRN (17:00)
[2019-02-08] MEDS ORDERED: TIZANIDINE 4MG TABLET PO PRN (17:00)
[2019-02-08] MEDS ORDERED: ONDANSETRON ODT 4 MG PO PRN (17:00)
[2019-02-08] MEDS ORDERED: ONDANSETRON 2MG/ML, 2ML IVPush PRN (17:00)
[2019-02-08 17:20] LABS: TROPONIN I < 0.015 ng/mL (0.000-0.045)
[2019-02-08] MEDS: METOPROLOL TARTRATE 25 MG TABLET PO SCH ×2 (17:34→17:46)
[2019-02-08] MEDS ORDERED: AMIO200T42 PO (17:46)
[2019-02-08] MEDS ORDERED: AMLO10TA8 PO (17:53)
[2019-02-08] MEDS ORDERED: HYDR-3245 PO (17:53)
[2019-02-08] MEDS ORDERED: DULO60CA56 PO (17:53)
[2019-02-08] MEDS ORDERED: DOXA2TAB9 PO (17:53)
[2019-02-08] MEDS ORDERED: POTASSIUM CHLORIDE 20 MEQ TAB.ER.PRT PO ONE (18:00)
[2019-02-08 19:41] VITALS: BP 155/83
[2019-02-08] MEDS: APIXABAN 5 MG TABLET PO SCH (22:12)
[2019-02-08] MEDS: TOPIRAMATE 25 MG TABLET PO SCH (22:12)
[2019-02-08] MEDS: BUSPIRONE 5 MG TABLET PO SCH (22:13)
[2019-02-08] MEDS ORDERED: HYDROcodone/APAP 10/325 MG TABLET PO ONE (22:30)
[2019-02-08] MEDS ORDERED: DULOXETINE 30 MG CAPSULE.DR PO SCH (22:30)
[2019-02-08 23:28] LABS: TROPONIN I < 0.015 ng/mL (0.000-0.045)
[2019-02-08] MEDS ORDERED: HYDROcodone/APAP 10/325 MG TABLET PO PRN (23:30)
[2019-02-09 01:17] VITALS: BP 153/89
[2019-02-09 05:44] LABS: ANION GAP 5 mmol/L (5-15); CALCIUM 8.4 mg/dL (8.5-10.1); CHLORIDE 111 mmol/L (98-107); CREATININE 1.11 mg/dL (0.55-1.02)
[2019-02-09 05:58] LABS: BASOPHILS # (AUTO) 0.04 x10^3/uL (0-0.1); BASOPHILS % (AUTO) 1 % (0-1); EOSINOPHILS # (AUTO) 0.06 x10^3/uL (0-0.4); EOSINOPHILS % (AUTO) 2 % (1-7); LYMPHOCYTES # (AUTO) 1.44 x10^3/uL (1-3.4); LYMPHOCYTES % (AUTO) 35 % (22-44); MD NO; MEAN CORPUSCULAR HEMOGLOBIN 28.7 pg (27.0-34.8); MEAN CORPUSCULAR HGB CONC 32.6 g/dL (32.4-35.8); MEAN CORPUSCULAR VOLUME 87.9 fL (80-100); MONOCYTES # (AUTO) 0.49 x10^3/uL (0.2-0.8); MONOCYTES % (AUTO) 12 % (2-9); NEUTROPHILS # (AUTO) 2.15 x10^3/uL (1.8-6.8); NEUTROPHILS % (AUTO) 51 % (42-75); PLATELET COUNT 211 x10^3/uL (130-400); RED BLOOD COUNT 4.25 x10^6/uL (3.82-5.3); RED CELL DISTRIBUTION WIDTH 18.3 % (9.6-15.2)
[2019-02-09 06:48] VITALS: BP 157/88
[2019-02-09] MEDS ORDERED: METOPROLOL SUCCINATE 50 MG TAB.ER.24H PO SCH (08:30)
[2019-02-09] MEDS ORDERED: POTASSIUM CHLORIDE 20 MEQ TAB.ER.PRT PO ONE (08:30)
[2019-02-09] MEDS ORDERED: CALCIUM/VITAMIN D3 250-125 TABLET PO SCH (09:00)
[2019-02-09] MEDS: TOPIRAMATE 25 MG TABLET PO SCH (09:00)
[2019-02-09] MEDS ORDERED: Exemestane 25 MG PO SCH (09:00)
[2019-02-09] MEDS ORDERED: FLUTICASONE NASAL SPRAY 16GM NAS SCH (09:00)
[2019-02-09] MEDS: BUSPIRONE 5 MG TABLET PO SCH (09:33)
[2019-02-09] MEDS: APIXABAN 5 MG TABLET PO SCH (09:33)
[2019-02-09 12:21] VITALS: BP 145/84
[2019-03-10] MEDS ORDERED: LISI-167 PO (09:21)
[2019-03-10] MEDS ORDERED: AMLO-150 PO (09:21)
[2019-03-10] MEDS ORDERED: HYDR-3245 PO (09:21)
[2019-03-11] MEDS ORDERED: WARF2.5T PO (11:53)
[2019-03-21] MEDS ORDERED: AMLO-150 PO (10:26)
[2019-03-21] MEDS ORDERED: TOPI25TA8 PO (10:28)
== END 2019-02-09 12:25 | disposition home or self-care (01) ==
LOC: ED 12:48 → EDIP 14:07 → INTOOBSV 14:07 → 5SO 15:38 → DCLOUNGE 02-09 12:18
PROVIDERS: ADMIT Emergency Medicine; ATTEND Emergency Medicine
DX: R61 Generalized hyperhidrosis (principal); E87.6 Hypokalemia; I48.91 Unspecified atrial fibrillation; G47.30 Sleep apnea, unspecified; I13.0 Hypertensive heart and chronic kidney disease with heart failure and stage 1 through stage 4 chronic kidney disease, or unspecified chronic kidney disease; E11.22 Type 2 diabetes mellitus with diabetic chronic kidney disease; G43.909 Migraine, unspecified, not intractable, without status migrainosus; N18.3 Chronic kidney disease, stage 3 (moderate); C50.919 Malignant neoplasm of unspecified site of unspecified female breast; F32.9 Major depressive disorder, single episode, unspecified; M81.0 Age-related osteoporosis without current pathological fracture; J45.909 Unspecified asthma, uncomplicated; Z88.1 Allergy status to other antibiotic agents; Z90.11 Acquired absence of right breast and nipple; G47.00 Insomnia, unspecified; Z79.01 Long term (current) use of anticoagulants; Z88.6 Allergy status to analgesic agent; Z88.5 Allergy status to narcotic agent; Z90.49 Acquired absence of other specified parts of digestive tract
CPT/HCPCS: 36415; 71045; 80048; 80053; 83735; 84484; 85025; 93005; 99284; G0378; J7030

== ENCOUNTER 2019-04-24 09:56 | Emergency (ER) | payer MEDICARE, MEDICAID ==
[~2019-04-24] VITALS: Ht 172.7 cm; Wt 82.0 kg
[~2019-04-24 09:56] MED LIST changes: +AMIO200T42 PO; +AMLO-150 PO; +AMLO10TA8 PO; +DOXA2TAB9 PO; +DULO60CA56 PO; +HYDR-3245 PO; +LISI-167 PO; +WARF2.5T PO
[2019-04-24] MEDS ORDERED: SODIUM CHLORIDE FLUSH 10ML SYR IVF ONE (10:00)
[2019-04-24 10:04] VITALS: BP 129/60
[2019-04-24 10:24] LABS: BASOPHILS # (AUTO) 0.01 x10^3/uL (0-0.1); BASOPHILS % (AUTO) 0 % (0-1); EOSINOPHILS # (AUTO) 0.02 x10^3/uL (0-0.4); EOSINOPHILS % (AUTO) 1 % (1-7); LYMPHOCYTES # (AUTO) 0.62 x10^3/uL (1-3.4); LYMPHOCYTES % (AUTO) 14 % (22-44); MD NO; MEAN CORPUSCULAR HEMOGLOBIN 28.4 pg (27.0-34.8); MEAN CORPUSCULAR HGB CONC 31.8 g/dL (32.4-35.8); MEAN CORPUSCULAR VOLUME 89.4 fL (80-100); MEAN PLATELET VOLUME 8.4 fL (7.4-10.4); MONOCYTES # (AUTO) 0.38 x10^3/uL (0.2-0.8); MONOCYTES % (AUTO) 9 % (2-9); NEUTROPHILS # (AUTO) 3.37 x10^3/uL (1.8-6.8); NEUTROPHILS % (AUTO) 77 % (42-75); PLATELET COUNT 233 x10^3/uL (130-400); RED BLOOD COUNT 3.84 x10^6/uL (3.82-5.3); RED CELL DISTRIBUTION WIDTH 16.6 % (9.6-15.2)
[2019-04-24] MEDS ORDERED: PLEASE ENTER HEIGHT AND WEIGHT MC SCH (10:30)
[2019-04-24 10:35] LABS: ANION GAP 4 mmol/L (5-15); CALCIUM 8.5 mg/dL (8.5-10.1); CHLORIDE 114 mmol/L (98-107); CREATININE 1.31 mg/dL (0.55-1.02)
[2019-04-24 10:36] LABS: ALBUMIN 3.3 g/dL (3.4-5.0)
[2019-04-24 10:39] LABS: INTERNATIONAL NORMALIZED RATIO 0.99 (0.93-1.1); PROTHROMBIN TIME 10.4 Seconds (9.6-11.5); TROPONIN I < 0.015 ng/mL (0.000-0.045)
--- NOTE | 2019-04-24 10:45 | NUR ---
off floor to ct
--- NOTE | 2019-04-24 11:35 | NUR ---
AMBULATED TO BATHROOM WITHOUT ASSISTANCE, STEADY GAIT.
--- NOTE | 2019-04-24 11:52 | NUR ---
ASSIST PRIMARY RN. URINE COLLECTED/ORDERED/SENT TO LAB. PT AMBULATORY TO BR WITH STEADY GAIT.
[2019-04-24 12:09] LABS: MICROSCOPIC NOT IND
[2019-04-24 12:16] LABS: CULTURE INDICATED? NO
--- NOTE | 2019-04-24 12:57 | NUR ---
AMBULATES WELL STEADY GAIT
== END 2019-04-24 13:34 | disposition home or self-care (01) ==
LOC: ED 10:50
DX: R42 Dizziness and giddiness (principal); R55 Syncope and collapse; I10 Essential (primary) hypertension; I48.91 Unspecified atrial fibrillation; G43.909 Migraine, unspecified, not intractable, without status migrainosus
CPT/HCPCS: 36415; 70450; 71045; 80048; 81003; 82040; 84484; 85025; 85610; 85730; 93005; 99284

== ENCOUNTER 2019-04-28 21:52 | Observation (INO) | payer MEDICARE, MEDICAID ==
[~2019-04-28] VITALS: Ht 170.2 cm; Wt 83.8 kg
[2019-04-28] MEDS ORDERED: SODIUM CHLORIDE 0.9% 1,000ML IVBOLUS ONE (22:30)
[2019-04-28 22:57] LABS: ALBUMIN 2.4 g/dL (3.4-5.0); ANION GAP 3 mmol/L (5-15); CALCIUM 7.7 mg/dL (8.5-10.1); CHLORIDE 115 mmol/L (98-107); CREATININE 1.19 mg/dL (0.55-1.02)
[2019-04-28 22:58] LABS: MEAN CORPUSCULAR HEMOGLOBIN 29.1 pg (27.0-34.8); MEAN CORPUSCULAR HGB CONC 32.1 g/dL (32.4-35.8); MEAN CORPUSCULAR VOLUME 90.7 fL (80-100); PLATELET COUNT 159 x10^3/uL (130-400); RED BLOOD COUNT 3.29 x10^6/uL (3.82-5.3); RED CELL DISTRIBUTION WIDTH 16.9 % (9.6-15.2)
[2019-04-28 23:01] LABS: TROPONIN I < 0.015 ng/mL (0.000-0.045)
[2019-04-28 23:12] LABS: BASOPHILS # (AUTO) 0.01 x10^3/uL (0-0.1); BASOPHILS % (AUTO) 0 % (0-1); EOSINOPHILS # (AUTO) 0.01 x10^3/uL (0-0.4); EOSINOPHILS % (AUTO) 1 % (1-7); LYMPHOCYTES # (AUTO) 0.76 x10^3/uL (1-3.4); LYMPHOCYTES % (AUTO) 28 % (22-44); MD SCAN; MONOCYTES # (AUTO) 0.45 x10^3/uL (0.2-0.8); MONOCYTES % (AUTO) 16 % (2-9); NEUTROPHILS % (AUTO) 55 % (42-75)
[2019-04-28 23:22] LABS: MICROSCOPIC NOT IND
[2019-04-28 23:26] LABS: CULTURE INDICATED? NO
[2019-04-28] MEDS ORDERED: OMNIPAQUE 350 MG/ML, 100ML BOTTLE ONE (23:47)
[2019-04-29] VITALS (9 sets, daily range): BP systolic 101–131; BP diastolic 55–80
[2019-04-29] MEDS ORDERED: ONDANSETRON 2MG/ML, 2ML IVPush PRN (01:00)
[2019-04-29] MEDS ORDERED: ACETAMINOPHEN 325 MG TABLET PO PRN (01:00)
--- NOTE | 2019-04-29 01:01 | NUR ---
Patient came into today from [place] via [facility]. Patient had a syncopal episode at home while on the toilet. Patient no further loss of consciousness en route and has been alert and oriented x4. Patient has been hypotensive, 70/40 for [facility], also hypotensive in er (see VS flowsheet) patient remains alert, oriented. Had female RN straight catheterize patient per order. Done per hospital protocol. Patient is making urine. No signs or symptoms of hypotension. Second IV fluid bolus hung, blood pressure improving. Hospitalist to bedside, while patient had been hypotensive, her blood pressure has normalized. Patient agreeable to admission. Awaiting room assignment.
[2019-04-29 02:34] LABS: RAPID INFLUENZA A Negative (Negative); RAPID INFLUENZA B Negative (Negative)
[2019-04-29] MEDS: INSULIN LISPRO 100 UNITS/ML, PEN SQ-INSULIN SCH ×4 (07:00→20:26)
[2019-04-29] MEDS: LISINOPRIL 20 MG TABLET PO SCH ×2 (08:51→20:49)
[2019-04-29] MEDS: DOXAZOSIN 2MG TABLET PO SCH (08:51)
[2019-04-29] MEDS: BUSPIRONE 5 MG TABLET PO SCH ×2 (08:51→20:49)
[2019-04-29] MEDS: TOPIRAMATE 25 MG TABLET PO SCH ×2 (08:51→20:49)
[2019-04-29] MEDS: AMLODIPINE 5 MG TABLET PO SCH (08:51)
[2019-04-29] MEDS: APIXABAN 5 MG TABLET PO SCH ×2 (08:51→20:49)
[2019-04-29] MEDS ORDERED: AMIODARONE 200 MG TABLET PO SCH (09:00)
[2019-04-29 09:02] LABS: TROPONIN I < 0.015 ng/mL (0.000-0.045)
[2019-04-29 11:48] LABS: INTERNATIONAL NORMALIZED RATIO 0.94 (0.93-1.1); PROTHROMBIN TIME 9.9 Seconds (9.6-11.5)
[2019-04-29] MEDS ORDERED: TIZANIDINE 4MG TABLET PO PRN (16:00)
[2019-04-29] MEDS: PREGABALIN 25 MG CAPSULE PO SCH (20:49)
[2019-04-29] MEDS: DULOXETINE 30 MG CAPSULE.DR PO SCH (20:49)
[2019-04-29] MEDS: HYDROcodone/APAP 10/325 MG TABLET PO PRN (21:27)
[2019-04-30] VITALS (13 sets, daily range): BP systolic 74–145; BP diastolic 49–82
[2019-04-30 06:15] LABS: ANION GAP 4 mmol/L (5-15); CHLORIDE 114 mmol/L (98-107); CREATININE 0.98 mg/dL (0.55-1.02)
[2019-04-30 06:35] LABS: MEAN CORPUSCULAR HEMOGLOBIN 28.4 pg (27.0-34.8); MEAN CORPUSCULAR HGB CONC 31.6 g/dL (32.4-35.8); MEAN CORPUSCULAR VOLUME 89.8 fL (80-100); MEAN PLATELET VOLUME 9.3 fL (7.4-10.4); PLATELET COUNT 124 x10^3/uL (130-400); RED CELL DISTRIBUTION WIDTH 17.1 % (9.6-15.2)
[2019-04-30 06:36] LABS: MD YES
[2019-04-30 06:37] LABS: ANISOCYTOSIS 1+; EOS#(MANUAL) 0.03 x10^3/uL (0.0-0.4); EOS% (MANUAL) 1 % (1-7); HYPOCHROMIA 1+; LYMPH#(MANUAL) 1.22 x10^3/uL (1-3.4); LYMPHS% (MANUAL) 47 % (22-44); MICROCYTOSIS 1+; MONOS#(MANUAL) 0.23 x10^3/uL (0.3-2.7); MONOS% (MANUAL) 9 % (2-9); SEG#(MANUAL) 1.12 x10^3/uL (1.8-6.8); SEGS% (MANUAL) 43 % (42-75)
[2019-04-30 06:38] LABS: <PLATELET ESTIMATE> DECREASED; <PLT MORPHOLOGY> NORMAL PLT MORPH
[2019-04-30] MEDS: INSULIN LISPRO 100 UNITS/ML, PEN SQ-INSULIN SCH ×4 (07:00→21:21)
[2019-04-30] MEDS: Exemestane 25 MG HOMEMEDPO SCH (07:49)
[2019-04-30] MEDS: PREGABALIN 25 MG CAPSULE PO SCH ×2 (08:31→21:21)
[2019-04-30] MEDS: LISINOPRIL 20 MG TABLET PO SCH ×2 (08:31→21:22)
[2019-04-30] MEDS: BUSPIRONE 5 MG TABLET PO SCH ×2 (08:31→21:21)
[2019-04-30] MEDS: APIXABAN 5 MG TABLET PO SCH ×2 (08:31→21:21)
[2019-04-30] MEDS: AMLODIPINE 5 MG TABLET PO SCH (08:31)
[2019-04-30] MEDS: TOPIRAMATE 25 MG TABLET PO SCH ×2 (08:32→21:22)
[2019-04-30] MEDS: DOXAZOSIN 2MG TABLET PO SCH (08:32)
[2019-04-30] MEDS: DULOXETINE 30 MG CAPSULE.DR PO SCH (21:21)
[2019-05-01 00:22] VITALS: BP 130/80
[2019-05-01 00:23] VITALS: BP_SYST 101; BP_SYST 109; BP_DIAS 64; BP_DIAS 69
[2019-05-01] MEDS: INSULIN LISPRO 100 UNITS/ML, PEN SQ-INSULIN SCH ×3 (07:00→15:42)
[2019-05-01 07:45] VITALS: BP 131/77
[2019-05-01 07:46] LABS: ANION GAP 5 mmol/L (5-15); CALCIUM 8.1 mg/dL (8.5-10.1); CHLORIDE 115 mmol/L (98-107)
[2019-05-01 07:47] LABS: MEAN CORPUSCULAR HEMOGLOBIN 28.4 pg (27.0-34.8); MEAN CORPUSCULAR HGB CONC 32.1 g/dL (32.4-35.8); MEAN CORPUSCULAR VOLUME 88.5 fL (80-100); MEAN PLATELET VOLUME 8.1 fL (7.4-10.4); PLATELET COUNT 176 x10^3/uL (130-400); RED BLOOD COUNT 3.63 x10^6/uL (3.82-5.3); RED CELL DISTRIBUTION WIDTH 16.6 % (9.6-15.2)
[2019-05-01 08:03] LABS: BASOPHILS # (AUTO) 0.01 x10^3/uL (0-0.1); BASOPHILS % (AUTO) 1 % (0-1); EOSINOPHILS # (AUTO) 0.02 x10^3/uL (0-0.4); EOSINOPHILS % (AUTO) 1 % (1-7); LYMPHOCYTES % (AUTO) 30 % (22-44); MD SCAN; MONOCYTES # (AUTO) 0.35 x10^3/uL (0.2-0.8); MONOCYTES % (AUTO) 15 % (2-9); NEUTROPHILS # (AUTO) 1.26 x10^3/uL (1.8-6.8); NEUTROPHILS % (AUTO) 54 % (42-75)
[2019-05-01] MEDS: Exemestane 25 MG HOMEMEDPO SCH (08:44)
[2019-05-01] MEDS: PREGABALIN 25 MG CAPSULE PO SCH (08:46)
[2019-05-01] MEDS: AMLODIPINE 5 MG TABLET PO SCH (08:46)
[2019-05-01] MEDS: APIXABAN 5 MG TABLET PO SCH (08:46)
[2019-05-01] MEDS: BUSPIRONE 5 MG TABLET PO SCH (08:47)
[2019-05-01] MEDS: LISINOPRIL 20 MG TABLET PO SCH (08:47)
[2019-05-01] MEDS: TOPIRAMATE 25 MG TABLET PO SCH (08:47)
[2019-05-01 12:01] VITALS: BP 146/79
[2019-05-01 12:03] VITALS: BP 137/80
[2019-05-01 12:06] VITALS: BP 116/74
[2019-05-01] MEDS: HYDROcodone/APAP 10/325 MG TABLET PO PRN (15:45)
[2019-05-01] MEDS ORDERED: APIX5TAB PO (16:05)
[2019-05-01] MEDS ORDERED: POTASSIUM CHLORIDE 10% 40 MEQ/30 ML UDC PO ONE (16:30)
== END 2019-05-01 19:06 | disposition home or self-care (01) ==
LOC: ED 04-29 00:43 → UNDOADMOB 04-29 00:55 → EDIP 04-29 00:55 → INTOOBSV 04-29 00:55 → EDIP 04-29 01:30 → 5SO 04-29 01:30 → INTOOBSV 04-30 16:00 → OBSVTOIN 04-30 16:00
PROVIDERS: ADMIT Internal Medicine; ATTEND Internal Medicine
DX: I95.1 Orthostatic hypotension (principal); I48.20 Chronic atrial fibrillation, unspecified; J96.10 Chronic respiratory failure, unspecified whether with hypoxia or hypercapnia; D68.69 Other thrombophilia; I13.0 Hypertensive heart and chronic kidney disease with heart failure and stage 1 through stage 4 chronic kidney disease, or unspecified chronic kidney disease; I50.30 Unspecified diastolic (congestive) heart failure; D64.9 Anemia, unspecified; D70.9 Neutropenia, unspecified; E11.22 Type 2 diabetes mellitus with diabetic chronic kidney disease; E86.0 Dehydration; F32.9 Major depressive disorder, single episode, unspecified; G89.29 Other chronic pain; I34.0 Nonrheumatic mitral (valve) insufficiency; I48.0 Paroxysmal atrial fibrillation; I49.3 Ventricular premature depolarization; J06.9 Acute upper respiratory infection, unspecified; J42 Unspecified chronic bronchitis; J45.909 Unspecified asthma, uncomplicated; M47.812 Spondylosis without myelopathy or radiculopathy, cervical region; M79.7 Fibromyalgia; M81.0 Age-related osteoporosis without current pathological fracture; N18.3 Chronic kidney disease, stage 3 (moderate); Z99.81 Dependence on supplemental oxygen; Z98.84 Bariatric surgery status; Z90.10 Acquired absence of unspecified breast and nipple; Z87.891 Personal history of nicotine dependence; Z85.3 Personal history of malignant neoplasm of breast; Z79.01 Long term (current) use of anticoagulants
CPT/HCPCS: 36415; 70450; 71045; 71260; 72125; 80048; 81003; 82040; 82533; 82962; 83880; 84145; 84484; 85025; 85610; 87400; 93005; 97161; 99285; G0378; J7030; Q9967